=== PATIENT | male | born 1965 | race Hispanic/Latino ===

== ENCOUNTER 2017-02-17 14:42 | Emergency (ER) | payer SELFPAY ==
[2017-02-17 15:43] VITALS: BP 125/76
--- NOTE | 2017-02-17 22:29 | Emergency Department Report ---
Entered by AFSHIN TADEO, acting as scribe for BRET LUNA NP. ED Rash HPI - HPI Chief Complaint: Skin Rash Stated Complaint: RASH/SORES ON HANDS Time Seen by Provider: 02/17/17 16:43 Duration: 3 weeks Location: Upper Extremities Suspected Cause: Unknown (notes new change to detergent) Rash Symptoms: Yes Itching (to affected areas), No Facial Swelling, No Tongue/ Oral Swelling, No Breathing Difficulties, No Choking Sensation, No Wheezing/ Dyspnea, No Peeling, No Blistering, No Fever, No Lightheaded, No Malaise, No Myalgias Severity: mild Other History: 51 y/o that is non-toxic, non ill appearing, in no acute distress with no significant PMHx presents to the ED c/o of a rash to upper body. Associated symptoms include itching to affected area, but he denies fever , chills, headache, SOB, chest pain, nausea, and vomiting. Notes recent changes to detergent. Denies having family with similar symptoms. Took Benadryl with some relief of itching. NKDA. ED Review of Systems ROS: Stated complaint: RASH/SORES ON HANDS Other details as noted in HPI Comment: All other systems reviewed and negative Constitutional: no symptoms reported. denies: chills, fever Respiratory: no symptoms reported. denies: cough, shortness of breath Cardiovascular: as per HPI. denies: chest pain Gastrointestinal: as per HPI. denies: nausea, vomiting Skin: rash (upper parts of body) Neurological: as per HPI. denies: headache ED Past Medical Hx - Past Medical History Previous Medical History?: No - Surgical History Past Surgical History?: Yes Additional Surgical History: hernia repair - Social History Smoking Status: Never Smoker Substance Use Type: None - Medications Home Medications: Home Medications Medication Instructions Recorded Confirmed Last Taken Type Prednisone [predniSONE] 40 mg PO QDAY 5 Days 02/17/17 Unknown Rx Rash Exam - Exam General: Vital signs noted. No distress. Alert and acting appropriately. GENERAL: The patient is a well-developed, well-nourished male in no apparent distress. Patient is alert and oriented x3. VITAL SIGNS: Stable HEENT: Head is normocephalic and atraumatic. Extraocular muscles are intact. Pupils are equal, round, and reactive to light and accommodation. Nares appeared normal. Mouth is well hydrated and without lesions. Mucous membranes are moist. Posterior pharynx clear of any exudate or lesions. NECK: Supple. No carotid bruits. No lymphadenopathy or thyromegaly. LUNGS: Clear to auscultation. HEART: Regular rate and rhythm without murmur. ABDOMEN: Soft, nontender, and nondistended. Positive bowel sounds. No hepatosplenomegaly was noted. EXTREMITIES: Without any cyanosis, clubbing, lesions or edema. NEUROLOGIC: Cranial nerves II through XII are grossly intact. PSYCHIATRIC: Normal affect with no suicidal or homicidal ideations. SKIN: No ulceration or induration present. Pruritic maculopapular rash to anterior chest, abdomen, back, and upper extremities with no sign of bed bugs present. no rash in webed fingers. HEENT: No Periorbital Edema, No Conjuctival Injection, No Chemosis, No Perioral Edema, No Tongue Edema, No Uvular Edema, No Compromised Airway, No Drooling Lungs: Yes Good Air Exchange, No Wheezes, No Ronchi, No Stridor, No Cough, No Labored Respirations, No Retractions, No Use of Accessory Muscles, No Other Abnormal Lung Sounds Heart: Yes Regular, No Murmur Skin: Yes Maculopapular Rash (maculopapular rash to anterior chest, abdomen, back, and upper extremities with no sign of bed bugs present ), Yes Morbilliform rash, No Urticarial Rash, No Bulla(e), No Excoriations, No Weeping , No Tenderness, No Erythema, No Edema, No Encrustations, No Other Other: Positive: Abdomen Normal, Neurologic Normal, Musculoskeletal Normal ( Normal inspection. FROM.) ED Course Vital Signs 02/17/17 15:40 Temperature 97.8 F Pulse Rate 64 Respiratory 18 Rate Blood Pressure 125/76 O2 Sat by Pulse 95 Oximetry ED Medical Decision Making - Medical Decision Making ED course: This is a 51-year-old male that presents with pruritic negative Pap and a rash to the upper extremities chest abdomen and back status post change to detergent 1- at the physical exam, my impression patient has contact dermatitis due to change of the detergent 2- at the time of discharge patient received prednisone 40 mg by mouth. Patient was notified to complete full course of prednisone. Patient also was instructed to continue taking Benadryl as needed [id number] for symptoms of itching area 3- patient was instructed to follow-up with her primary care doctor in 3-5 days or if symptoms worsen such as shortness of breath, difficulty breathing, chest pain, worsening symptoms, nausea vomiting or headache to report back to emergency room. 4- at patella discharge the patient does not seem toxic or ill in appearance. No acute signs of distress noted. Patient should discharge treatment plan. No further questions noted by the patient. 5- patient was instructed to change her detergent due to possibility of allergic reaction of this. Critical care attestation.: If time is entered above; I have spent that time in minutes in the direct care of this critically ill patient, excluding procedure time. ED Disposition Clinical Impression: Pruritic rash Contact dermatitis Qualifiers: Contact dermatitis type: allergic Contact dermatitis trigger: unspecified trigger Qualified Code(s): L23.9 - Allergic contact dermatitis, unspecified cause Disposition: DISCHARGED TO HOME OR SELFCARE Is pt being admited?: No Does the pt Need Aspirin: No Condition: Stable Instructions: Acute Rash (ED), Contact Dermatitis (ED) Additional Instructions: Continue taking [id number] Benadryl as needed for symptoms of itching. Take full course of prednisone as prescribed. if symptoms worsen such as shortness of breath, difficulty breathing, chest pain , worsening symptoms, nausea vomiting or headache to report back to emergency room. Prescriptions: Prednisone [predniSONE] 40 mg PO QDAY 5 Days Referrals: PRIMARY MD JEANNIE [Primary Care Provider] - 3-5 Days SAMANTHA LAYNE MD [Referring] - 3-5 Days [facility] [Outside] - 3-5 Days [facility] [Outside] - 3-5 Days Forms: Work/School Release Form(ED) This documentation as recorded by the SHWETHA mckinley JASMINE,accurately reflects the service I personally performed and the decisions made by me,BRET LUNA, [employer].
== END 2017-02-17 18:10 | disposition home or self-care (01) ==
LOC: ED 14:42
DX: L23.9 Allergic contact dermatitis, unspecified cause (principal); L29.9 Pruritus, unspecified
CPT/HCPCS: 99282

== ENCOUNTER 2017-03-03 18:54 | Emergency (ER) | payer SELFPAY ==
--- NOTE | 2017-03-03 23:42 | Emergency Department Report ---
ED Upper Extremity Inj HPI - General Chief Complaint: Extremity Injury, Upper Stated Complaint: MIDDLE FINGER JAMMED Time Seen by Provider: 03/03/17 23:35 Source: patient Mode of arrival: Ambulatory Limitations: No Limitations - History of Present Illness Initial Comments: This is a 51-year-old male well-nourished with nontoxic or ill in appearance that presents with right middle finger injury that has occurred this evening. Patient stated he was doing lawn work when he hit his middle finger against his brick house. Patient stated put ice right after incident. Denies taking anything OTC for pain. Patients associated symptoms include pain that is described as aching and swelling. Patient denies any numbness, tingling, unable to move extremities, chest pain, shortness of breath, ecchymosis, laceration or abrasion. Patient denies any allergies. Denies any past medical history. MD Complaint: Injury to:: left, finger (middle) -: Sudden, This evening Place: outdoors Severity scale (0 -10): 7 Improves With: none Worsens With: none Context: direct blow Associated Symptoms: denies other symptoms. denies: weakness, numbness, neck pain, suspects foreign body, nausea/vomiting, heard/felt popping sensat - Related Data Previous Rx's Medication Instructions Recorded Last Taken Type Prednisone [predniSONE] 40 mg PO QDAY 5 Days 02/17/17 Unknown Rx Ibuprofen [Motrin 600 MG tab] 600 mg PO Q8H PRN #14 tablet 03/03/17 Unknown Rx Allergies Allergy/AdvReac Type Severity Reaction Status Date / Time No Known Allergies Allergy Unverified 02/17/17 15:40 ED Review of Systems ROS: Stated complaint: MIDDLE FINGER JAMMED Other details as noted in HPI Constitutional: denies: chills, fever Eyes: denies: eye pain, eye discharge, vision change ENT: denies: ear pain, throat pain Respiratory: denies: cough, shortness of breath, wheezing Cardiovascular: denies: chest pain, palpitations Endocrine: no symptoms reported Gastrointestinal: denies: abdominal pain, nausea, diarrhea Genitourinary: denies: urgency, dysuria Musculoskeletal: denies: back pain, joint swelling, arthralgia Skin: denies: rash, lesions Neurological: denies: headache, weakness, paresthesias Psychiatric: denies: anxiety, depression Hematological/Lymphatic: denies: easy bleeding, easy bruising ED Past Medical Hx - Past Medical History Previous Medical History?: No - Surgical History Past Surgical History?: Yes Additional Surgical History: hernia repair - Social History Smoking Status: Former Smoker Substance Use Type: Alcohol - Medications Home Medications: Home Medications Medication Instructions Recorded Confirmed Last Taken Type Prednisone [predniSONE] 40 mg PO QDAY 5 Days 02/17/17 Unknown Rx Ibuprofen [Motrin 600 MG tab] 600 mg PO Q8H PRN #14 tablet 03/03/17 Unknown Rx ED Physical Exam - General Limitations: No Limitations General appearance: alert, in no apparent distress - Head Head exam: Present: atraumatic, normocephalic - Eye Eye exam: Present: normal appearance, PERRL, EOMI Pupils: Present: normal accommodation - ENT ENT exam: Present: normal exam, normal orophraynx, mucous membranes moist, TM's normal bilaterally, normal external ear exam - Neck Neck exam: Present: normal inspection, full ROM. Absent: tenderness, meningismus, lymphadenopathy, thyromegaly - Respiratory Respiratory exam: Present: normal lung sounds bilaterally. Absent: respiratory distress, wheezes, rales, rhonchi, stridor, chest wall tenderness, accessory muscle use, decreased breath sounds, prolonged expiratory - Cardiovascular Cardiovascular Exam: Present: regular rate, normal rhythm, normal heart sounds. Absent: bradycardia, tachycardia, irregular rhythm, systolic murmur, diastolic murmur, rubs, gallop - GI/Abdominal GI/Abdominal exam: Present: soft, normal bowel sounds. Absent: distended, tenderness, guarding, rebound, rigid - Rectal Rectal exam: Present: deferred - Extremities Exam Extremities exam: Present: normal inspection, full ROM, normal capillary refill. Absent: tenderness, pedal edema, joint swelling, calf tenderness - Expanded Upper Extremity Exam Right General: Present: normal inspection Shoulder Exam: Present: normal inspection, full ROM. Absent: tenderness, swelling, abrasion, laceration, ecchymosis Upper Arm exam: Present: normal inspection, full ROM. Absent: tenderness, swelling, abrasion, laceration, ecchymosis Elbow exam: Present: normal inspection, full ROM. Absent: tenderness, swelling , abrasion, laceration, ecchymosis Forearm Wrist exam: Present: normal inspection, full ROM. Absent: tenderness, swelling, abrasion, laceration, ecchymosis Hand Wrist exam: Present: normal inspection, full ROM, tenderness (middle finger ), swelling (middle finger). Absent: abrasion, laceration, ecchymosis, deformity, crepidus, erythema, amputation, nail avulsion, subungual hematoma Neuro motor exam: Present: wrist extension intact, fingers 2-5 abduction intact Neurosensory exam: Present: 2-point discrimination, radial nerve intact, ulnar nerve intact, median nerve intact Vascular: Present: vascular compromise, normal capillary refill, radial pulse, brachial pulse, ulnar pulse - Back Exam Back exam: Present: normal inspection, full ROM. Absent: tenderness, CVA tenderness (R), CVA tenderness (L), muscle spasm, paraspinal tenderness, vertebral tenderness, rash noted - Neurological Exam Neurological exam: Present: alert, oriented X3, CN II-XII intact, normal gait - Psychiatric Psychiatric exam: Present: normal affect, normal mood. Absent: depressed, agitated, anxious - Skin Skin exam: Present: warm, dry, intact, normal color. Absent: rash ED Course Vital Signs 03/03/17 19:01 Temperature 97.8 F Pulse Rate 85 Respiratory 20 Rate Blood Pressure 133/78 O2 Sat by Pulse 98 Oximetry ED Medical Decision Making - Medical Decision Making Ed course: This is a 51-year-old male that presents with right middle finger strain 1- Patient received x-ray of the right middle finger. Dictated by Dr. Perez. Impression:Small avulsion fx of the proximal PIP joint middle finger posterior aspect. Results has been notified to the patient with no questions noted by the patient, . 2- After my physical exam, patient received ibuprofen 600 mg PO at the time of d /c. 3- Patient was instructed to follow-up with his orthopedic in 24 hours or if symptoms such as pus, swelling, numbness, tingling, fever, chills, or unbearable pain with limited movement to report back to emergency room as soon as possibles. 4- at time time of discharge, the patient does not seem toxic or ill in appearance. No acute signs of distress noted. Patient agrees to discharge treatment plan of care. No further questions noted by the patient. 5- A toad splint has been applied to the right middle finger and patient was instructed to rest, elevate, and apply ice to the area. Critical care attestation.: If time is entered above; I have spent that time in minutes in the direct care of this critically ill patient, excluding procedure time. ED Disposition Clinical Impression: Avulsion fracture Finger fracture, right Qualifiers: Encounter type: initial encounter Finger: middle finger Fracture type: closed Phalanx: proximal Fracture alignment: nondisplaced Qualified Code(s): S62.642A - Nondisplaced fracture of proximal phalanx of right middle finger, initial encounter for closed fracture Disposition: DISCHARGED TO HOME OR SELFCARE Is pt being admited?: No Does the pt Need Aspirin: No Condition: Stable Instructions: Ibuprofen (By mouth), RICE Therapy (ED), Finger Fracture (ED), Splint Care (ED) Additional Instructions: Follow-up with your primary care doctor/orthopedic in 3-5 days or if symptoms such as pus, swelling, numbness, tingling, fever, chills, or unbearable pain with limited movement to report back to emergency room as soon as possibles. Prescriptions: Ibuprofen [Motrin 600 MG tab] 600 mg PO Q8H PRN #14 tablet PRN Reason: Pain Referrals: [facility] [Outside] - 3-5 Days [facility] [Outside] - 3-5 Days ARACELY ORELLANA JR, MD [Staff Physician] - 3-5 Days PRIMARY CAREMD [Primary Care Provider] - 3-5 Days ANDERSON STERN MD [Staff Physician] - 24 Hours Forms: Work/School Release Form(ED)
--- NOTE | 2017-03-03 23:48 | XRay Report ---
FINAL REPORT PROCEDURE: Right hand series TECHNIQUE: RIGHT hand radiographs, AP, lateral, and oblique views. CPT 29044-ND HISTORY: Right middle finger injury and bruising COMPARISON: No prior studies are available for comparison. FINDINGS: On the lateral view a avulsion fractures seen at the PIP joint of the middle finger. A small avulsed fragment of bone is seen located posterior measuring 1.9 x 1.0 millimeters. This appears to originate from the proximal end of the middle phalanx posteriorly. There is diffuse soft tissue swelling involving the 3rd finger. No other fractures are seen. No evidence of dislocation. Mild osteoarthritic changes MCP joint of the thumb. IMPRESSION: Small avulsion fracture PIP joint middle finger posterior aspect as described above..
[2017-03-04 00:18] VITALS: BP 130/60
== END 2017-03-04 00:03 | disposition home or self-care (01) ==
LOC: ED 18:54
DX: S62.642A Nondisplaced fracture of proximal phalanx of right middle finger, initial encounter for closed fracture (principal); Z87.891 Personal history of nicotine dependence; W22.8XXA Striking against or struck by other objects, initial encounter; Y93.89 Activity, other specified; Y99.8 Other external cause status; Y92.488 Other paved roadways as the place of occurrence of the external cause

== ENCOUNTER 2017-03-25 15:53 | Emergency (ER) | payer SELFPAY ==
[2017-03-25 16:10] VITALS: BP 137/79
--- NOTE | 2017-03-25 16:40 | Emergency Department Report ---
ED General Adult HPI - General Chief complaint: Skin Rash Stated complaint: RASH Time Seen by Provider: 03/25/17 16:14 Source: patient Mode of arrival: Ambulatory Limitations: No Limitations - History of Present Illness Initial comments: PT c/o rash. PT states he had this rash in February and thought it was due to change in detergent. PT states he took all of his medication but the rash did not improve. PT states that no close contacts have a rash. PT states that the rash itches worse at night. PT denies fevers/ chills. MD Complaint: rash -: Gradual Location: neck, chest, left, right, upper extremity Quality: other (itching ) Consistency: constant Improves with: none Worsens with: other (at night ) Associated Symptoms: rash. denies: chest pain, fever/chills, nausea/vomiting, shortness of breath Treatments Prior to Arrival: none - Related Data Previous Rx's Medication Instructions Recorded Last Taken Type Cephalexin [Keflex] 500 mg PO Q6HR #40 capsule 03/25/17 Unknown Rx Permethrin 5% [Acticin 5% CREAM] 1 applicatio TP ONCE #1 tube 03/25/17 Unknown Rx hydrOXYzine PAMOATE [Vistaril] 25 mg PO Q6HR PRN #12 capsule 03/25/17 Unknown Rx methylPREDNISolone [Medrol] 4 mg PO DAILY #1 tab.ds.pk 03/25/17 Unknown Rx Allergies Allergy/AdvReac Type Severity Reaction Status Date / Time No Known Allergies Allergy Unverified 02/17/17 15:40 ED Review of Systems ROS: Stated complaint: RASH Other details as noted in HPI Comment: All other systems reviewed and negative Constitutional: denies: chills, fever ENT: denies: throat pain Respiratory: denies: shortness of breath Cardiovascular: denies: chest pain Gastrointestinal: denies: abdominal pain, nausea, vomiting Skin: as per HPI, change in color ED Past Medical Hx - Past Medical History Previous Medical History?: No - Surgical History Past Surgical History?: Yes Additional Surgical History: hernia repair - Social History Smoking Status: Never Smoker Substance Use Type: None - Medications Home Medications: Home Medications Medication Instructions Recorded Confirmed Last Taken Type Cephalexin [Keflex] 500 mg PO Q6HR #40 capsule 03/25/17 Unknown Rx Permethrin 5% [Acticin 5% CREAM] 1 applicatio TP ONCE #1 tube 03/25/17 Unknown Rx hydrOXYzine PAMOATE [Vistaril] 25 mg PO Q6HR PRN #12 capsule 03/25/17 Unknown Rx methylPREDNISolone [Medrol] 4 mg PO DAILY #1 tab.ds.pk 03/25/17 Unknown Rx ED Physical Exam - General Limitations: No Limitations General appearance: alert, in no apparent distress - Head Head exam: Present: atraumatic, normocephalic, normal inspection - Eye Eye exam: Present: normal appearance. Absent: PERRL, scleral icterus, conjunctival injection - ENT ENT exam: Present: normal exam, normal external ear exam - Neck Neck exam: Present: full ROM, other (scaly rash to ant neck ). Absent: tenderness, lymphadenopathy - Respiratory Respiratory exam: Present: normal lung sounds bilaterally. Absent: respiratory distress, chest wall tenderness - Cardiovascular Cardiovascular Exam: Present: regular rate, normal rhythm, normal heart sounds - GI/Abdominal GI/Abdominal exam: Present: soft. Absent: tenderness - Extremities Exam Extremities exam: Present: full ROM, normal capillary refill. Absent: tenderness - Back Exam Back exam: Present: normal inspection, full ROM - Neurological Exam Neurological exam: Present: alert, oriented X3 - Psychiatric Psychiatric exam: Present: normal affect, normal mood - Skin Skin exam: Present: warm, dry, rash, erythema, other (pt with dry scaly skin to neck. maculopapural rash to bue, + areas of skin excoriation, multiple scabs. pt with multiple tattoos. rash noted to finger webs. no rash noted to palms. ) . Absent: intact, normal color, vesicles ED Course Vital Signs 03/25/17 16:07 Temperature 98 F Pulse Rate 61 Respiratory 16 Rate Blood Pressure 137/79 O2 Sat by Pulse 95 Oximetry - Reevaluation(s) Reevaluation #1: 03/25/17 16:45 PT aware of possible need for dermatology follow up. PT has no questions at this time. - Pulse Oximetry Interpretation Digit-Finger Initial Pulse Oximetry Readin Actions Taken: none ED Medical Decision Making - Differential Diagnosis contact dermatitis, scabies, Critical Care Time: No Critical care attestation.: If time is entered above; I have spent that time in minutes in the direct care of this critically ill patient, excluding procedure time. ED Disposition Clinical Impression: Rash and nonspecific skin eruption Disposition: DC-01 TO HOME OR SELFCARE Is pt being admited?: No Does the pt Need Aspirin: No Condition: Stable Instructions: Scabies (ED), Acute Rash (ED) Additional Instructions: No driving of ETOH after taking Benadryl Follow up with Dermatology in 3-5 days Scabies is contagious, follow dc instructions on home care. Prescriptions: Cephalexin [Keflex] 500 mg PO Q6HR #40 capsule hydrOXYzine PAMOATE [Vistaril] 25 mg PO Q6HR PRN #12 capsule PRN Reason: Itching methylPREDNISolone [Medrol] 4 mg PO DAILY #1 tab.ds.pk Permethrin 5% [Acticin 5% CREAM] 1 applicatio TP ONCE #1 tube Referrals: [facility] [Outside] - 3-5 Days CATHERINE BAIRES MD [Referring] - 3-5 Days PRIMARY CARE, [Primary Care Provider] - 3-5 Days Forms: Work/School Release Form(ED) Time of Disposition: 16:48
== END 2017-03-25 17:00 | disposition home or self-care (01) ==
LOC: ED 15:53
DX: R21 Rash and other nonspecific skin eruption (principal)
CPT/HCPCS: 99282

== ENCOUNTER 2017-04-23 13:38 | Emergency (ER) | payer SELFPAY ==
[2017-04-23 15:04] VITALS: BP 114/74
[2017-04-23] MEDS ORDERED: TRIPLE ANTIBIOTIC TP ONE (16:08)
[2017-04-23] MEDS ORDERED: BENADRYL PO ONE (16:08)
[2017-04-23] MEDS ORDERED: DELTASONE PO ONE (16:08)
--- NOTE | 2017-04-23 16:10 | Emergency Department Report ---
HPI - General Chief Complaint: Skin Rash Time Seen by Provider: 04/23/17 16:05 - HPI HPI: 52-year-old male with no prior history presents to the ED complaining of a bite liberty and itching on his face. Patient states woke up yesterday and noticed bite liberty on his left cheek with some redness and itching that followed. He denies fever/chills/nausea/vomiting or any other problems. ED Past Medical Hx - Past Medical History Previous Medical History?: No - Surgical History Past Surgical History?: Yes Additional Surgical History: hernia repair 2008 - Social History Smoking Status: Never Smoker Substance Use Type: None - Medications Home Medications: Home Medications Medication Instructions Recorded Confirmed Last Taken Type Permethrin 5% [Acticin 5% CREAM] 1 applicatio TP ONCE #1 tube 03/25/17 Unknown Rx hydrOXYzine PAMOATE [Vistaril] 25 mg PO Q6HR PRN #12 capsule 03/25/17 Unknown Rx methylPREDNISolone [Medrol] 4 mg PO DAILY #1 tab.ds.pk 03/25/17 Unknown Rx Cephalexin [Keflex] 500 mg PO Q6HR #12 capsule 04/23/17 Unknown Rx diphenhydrAMINE [Benadryl CAP] 25 mg PO QHS #24 capsule 04/23/17 Unknown Rx ED Review of Systems ROS: Stated complaint: RASH Other details as noted in HPI Constitutional: denies: chills, fever Eyes: denies: eye pain, eye discharge, vision change ENT: denies: ear pain, throat pain Respiratory: denies: cough, shortness of breath, wheezing Cardiovascular: denies: chest pain, palpitations Endocrine: no symptoms reported Gastrointestinal: denies: abdominal pain, nausea, diarrhea Genitourinary: denies: urgency, dysuria Musculoskeletal: denies: back pain, joint swelling, arthralgia Skin: denies: rash, lesions Neurological: denies: headache, weakness, paresthesias Psychiatric: denies: anxiety, depression Hematological/Lymphatic: denies: easy bleeding, easy bruising Physical Exam - Physical Exam Vital Signs: Vital Signs 04/23/17 15:01 Temperature 98.7 F Pulse Rate 68 Respiratory 16 Rate Blood Pressure 114/74 O2 Sat by Pulse 100 Oximetry Physical Exam: GENERAL: Alert and oriented x3, no apparent distress, Normal Gait, atraumatic. HEAD: Head is normocephalic and a-traumatic. EYES: Extra ocular muscles are intact. Pupils are equal, round, and reactive to light and accommodation. FACE: Slight left cheek Erythematous, nonedematous, nontender to palpation NOSE: Nose symetrical, Nontender,Nares appeared normal. MOUTH:Mouth is well hydrated and without lesions. Tonsils nonerythematous or swollen, Uvula midline, Tongue not elevated. Mucous membranes are moist. Posterior pharynx clear, no exudate or lesions. Patent airways. NECK: Supple. Non edematous, No lymphadenopathy LUNGS: Symetrical with respiration, No wheezing, no rales or crackles, CTAB. HEART: S1, S2 present, regular rate and rhythm without murmur, no rubs, no gallops. Non tender to palpation SKIN: Warm and dry, 1 by Liberty surrounded by cellulitis, nontender to palpation , mildly itching , No other lesions, No ulceration or induration present. ED Course Vital Signs 04/23/17 15:01 Temperature 98.7 F Pulse Rate 68 Respiratory 16 Rate Blood Pressure 114/74 O2 Sat by Pulse 100 Oximetry ED Medical Decision Making - Medical Decision Making 52-year-old male presents with insect bites ED course patient received prednisone, Benadryl and by applied triple antibiotic to it Discussed with patient to continue taking medication as disc prescribed. Discussed follow-up care physician. Discussed worsening of symptoms to return to ED. Vital signs are normal patient is in no acute distress he understands all instructions given. Critical care attestation.: If time is entered above; I have spent that time in minutes in the direct care of this critically ill patient, excluding procedure time. ED Disposition Clinical Impression: Insect bite Qualifiers: Encounter type: initial encounter Qualified Code(s): W57.XXXA - Bitten or stung by nonvenomous insect and other nonvenomous arthropods, initial encounter Disposition: DC-01 TO HOME OR SELFCARE Is pt being admited?: No Does the pt Need Aspirin: No Condition: Stable Instructions: Insect Bite or Sting (ED) Prescriptions: diphenhydrAMINE [Benadryl CAP] 25 mg PO QHS #24 capsule Cephalexin [Keflex] 500 mg PO Q6HR #12 capsule Referrals: PRIMARY CARE, [Primary Care Provider] - 3-5 Days [facility] [Outside] - 3-5 Days [facility] [Outside] - 3-5 Days Forms: Accompanied Note, Work/School Release Form(ED) Time of Disposition: 16:30
== END 2017-04-23 17:06 | disposition home or self-care (01) ==
LOC: ED 13:38
DX: S00.86XA Insect bite (nonvenomous) of other part of head, initial encounter (principal); W57.XXXA Bitten or stung by nonvenomous insect and other nonvenomous arthropods, initial encounter; Y93.89 Activity, other specified; Y92.89 Other specified places as the place of occurrence of the external cause; Y99.8 Other external cause status
CPT/HCPCS: 99282; J7512; A6250

== ENCOUNTER 2018-02-06 03:34 | Emergency (ER) | payer OTHER ==
[2018-02-06 03:55] VITALS: BP 120/91
[2018-02-06] MEDS ORDERED: MOTRIN PO ONE (04:04)
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
== END 2018-02-06 06:07 | disposition home or self-care (01) ==
LOC: ED 03:34
DX: S22.22XA Fracture of body of sternum, initial encounter for closed fracture (principal); S13.4XXA Sprain of ligaments of cervical spine, initial encounter; R51 Headache; F12.10 Cannabis abuse, uncomplicated; V49.49XA Driver injured in collision with other motor vehicles in traffic accident, initial encounter; Y93.89 Activity, other specified; Y92.89 Other specified places as the place of occurrence of the external cause; Y99.8 Other external cause status
CPT/HCPCS: 70450; 71250; 72125